=== PATIENT | male | born 1945 | race Caucasian/White ===

== ENCOUNTER 2016-05-24 14:42 | Emergency (ER) | payer MEDICAID ==
[~2016-05-24] VITALS: Ht 170.2 cm; Wt 64.4 kg
[2016-05-24] MEDS ORDERED: MINERAL OIL 133 ML (PYXIS) 1 EA ENEMA RC ONE ×2 (14:57→15:00)
[2016-05-24] MEDS ORDERED: ASPI-605 PO (15:08)
[2016-05-24] MEDS ORDERED: CARB-93 PO (15:08)
[2016-05-24] MEDS ORDERED: SIMV10TA6 PO (15:08)
[2016-05-24] MEDS ORDERED: FINA5TAB11 PO (15:08)
[2016-05-24 18:16] VITALS: BP 142/77
== END 2016-05-24 18:17 | disposition home or self-care (01) ==
LOC: ER 14:46
DX: K59.00 Constipation, unspecified (principal); K40.90 Unilateral inguinal hernia, without obstruction or gangrene, not specified as recurrent; E78.5 Hyperlipidemia, unspecified; I10 Essential (primary) hypertension; Z79.82 Long term (current) use of aspirin
CPT/HCPCS: 99283; A4606; Z7610

== ENCOUNTER 2019-04-22 20:43 | Emergency (ER) | payer MEDICAID, OTHER ==
[~2019-04-22] VITALS: Ht 160 cm; Wt 79.4 kg
[~2019-04-22 20:43] MED LIST: ASPI-605 PO; CARB-93 PO; FINA5TAB11 PO; SIMV10TA98 PO
[2019-04-22] MEDS ORDERED: ONDANSETRON HCL/PF 4 MG/2 ML VIAL IVP ONE (21:30)
[2019-04-22] MEDS ORDERED: IV NS 0.9% 1,000 ML BAG IV ONE (21:30)
[2019-04-22 21:46] LABS: BASOPHILS # (AUTO) 0.1 /CMM (0.0-0.2); BASOPHILS % (AUTO) 1.1 % (0.0-2.0); HEMATOCRIT 40 % (39-51); HEMOGLOBIN 13.6 g/dL (13.5-17.5); LYMPHOCYTES # (AUTO) 2.1 /CMM (0.8-4.8); LYMPHOCYTES % (AUTO) 32.4 % (20.0-44.0); MEAN CORPUSCULAR HGB CONC 34 g/dl (31.0-36.0); MEAN CORPUSCULAR VOLUME 95 fL (80-96); MONOCYTES # (AUTO) 0.5 /CMM (0.1-1.30); MONOCYTES % (AUTO) 7.7 % (2.0-12.0); NEUTROPHILS # (AUTO) 3.7 /CMM (1.8-8.9); NEUTROPHILS % (AUTO) 55.8 % (43.0-81.0); PLATELET COUNT (AUTO) 233 /CMM (150-450); RED BLOOD CELL COUNT(AUTO) 4.25 MIL/uL (4.5-6.0); WHITE BLOOD COUNT (AUTO) 6.6 K/uL (4.3-11.0)
[2019-04-22 22:09] LABS: CALCIUM, SERUM 9.2 mg/dL (8.5-10.1); CARBON DIOXIDE 29 mmol/L (21-32); CHLORIDE 107 mmol/L (98-107); GLUCOSE 121 mg/dL (74-106); POTASSIUM 3.5 mmol/L (3.5-5.1); SODIUM SERUM 143 mmol/L (136-145); UREA NITROGEN, BLOOD 18 mg/dL (7-18)
[2019-04-22] MEDS ORDERED: ONDANSETRON HCL/PF 4 MG/2 ML VIAL ONE (22:10)
[2019-04-22 22:13] LABS: ALANINE AMINOTRANSFERASE 15 U/L (12-78); ALBUMIN 3.8 g/dL (3.4-5.0); ALKALINE PHOSPHATASE 84 U/L (46-116); ASPARTATE AMINOTRANSFERASE 23 U/L (15-37); BILIRUBIN,DIRECT 0.1 mg/dL (0.0-0.2); BILIRUBIN,TOTAL 0.5 mg/dL (0.2-1.0); TOTAL PROTEIN, SERUM 7.3 g/dL (6.4-8.2)
--- NOTE | 2019-04-22 22:19 | NUR ---
BIB vacuum drier tender FROM [facility] FOR C/O INCRESED CONFUSION "WANDERING AT THE FACILITY". PT AAOX2, VSS. DENIES CP, SOB, DIZZINESS, WEAKNESS @ THIS TIME. PT C/O NAUSEA & MEDICATED ORDERED BY SHANNAN. PT JESUS ALBERTO WELL. WILL CONT TO MONITOR.
--- NOTE | 2019-04-22 23:40 | NUR ---
[facility] ETA [phone]
--- NOTE | 2019-04-23 02:27 | NUR ---
REPORT GIVEN TO garment liner FROM [facility]
--- NOTE | 2019-04-23 02:29 | NUR ---
ATTEMPTED TO CALL ALEXEY PAYTON MULTIPLE TIMES TO GIVE REPORT . SOUNDS LIKE THEIR PHONE IS BROKEN AND CAN'T HEAR US.
--- NOTE | 2019-04-23 02:31 | NUR ---
[facility] AT BEDSIDE FOR TRANSPORT HOME.
--- NOTE | 2019-04-23 02:53 | NUR ---
PT WAS PICKED UP BY [facility] IN STABLE CONDITION AND TRANSFERRED BACK TO THE [facility]. ALL BELONGINGS PICKED UP BY THE game advisor.
[2019-04-23 02:58] VITALS: BP 152/90
== END 2019-04-23 02:59 ==
LOC: ER 20:47
DX: R41.82 Altered mental status, unspecified (principal); I10 Essential (primary) hypertension; N40.0 Benign prostatic hyperplasia without lower urinary tract symptoms; E78.5 Hyperlipidemia, unspecified; G20 Parkinson's disease; Z98.890 Other specified postprocedural states; Z79.82 Long term (current) use of aspirin; Z79.899 Other long term (current) drug therapy
CPT/HCPCS: 36415; 70450; 71045; 80048; 80076; 83605; 84484; 85025; 85730; 87040; 93005; 96374; 99284; J2405; J7030

== ENCOUNTER 2019-10-28 20:53 | Inpatient (IN) | payer OTHER ==
[~2019-10-28] VITALS: Ht 160 cm; Wt 64.4 kg
--- NOTE | 2019-10-28 21:00 | NUR ---
bib ambulife 722 from [facility] for fever of 99.9 and poor appetite.; pt to bed 7, awake, verbally responsive, placed on monitor, noted with elevated temp, -sob noted, pending er doctor sandip
--- NOTE | 2019-10-28 21:09 | NUR ---
[facility] AT BEDSIDE FOR EKG
[2019-10-28] MEDS ORDERED: CYCL5TAB PO (21:11)
[2019-10-28] MEDS ORDERED: AMLO5TAB9 PO (21:11)
[2019-10-28] MEDS ORDERED: TRAZ-257 PO (21:11)
[2019-10-28] MEDS ORDERED: DICL100G16 TP (21:11)
[2019-10-28] MEDS ORDERED: ACET500C4 PO (21:11)
[2019-10-28] MEDS ORDERED: ATOR10TA PO (21:11)
[2019-10-28] MEDS ORDERED: ERGO500014 PO (21:11)
[2019-10-28] MEDS ORDERED: POLY17PO4 PO (21:11)
--- NOTE | 2019-10-28 21:25 | NUR ---
LABS DRAWN AND SENT TO LAB
--- NOTE | 2019-10-28 21:25 | NUR ---
URINE COLLECTED AND SENT TO LAB
--- NOTE | 2019-10-28 21:28 | NUR ---
COVID SWAB SENT TO LAB
[2019-10-28 21:42] LABS: BASOPHILS % (AUTO) 0.6 % (0.0-2.0); EOSINOPHILS % (AUTO) 0.2 % (0.0-6.0); HEMATOCRIT 39 % (39-51); HEMOGLOBIN 13.1 g/dL (13.5-17.5); LYMPHOCYTES # (AUTO) 0.7 /CMM (0.8-4.8); LYMPHOCYTES % (AUTO) 14.4 % (20.0-44.0); MEAN CORPUSCULAR HGB CONC 34 g/dl (31.0-36.0); MEAN CORPUSCULAR VOLUME 93 fL (80-96); MONOCYTES # (AUTO) 0.8 /CMM (0.1-1.30); MONOCYTES % (AUTO) 15.9 % (2.0-12.0); NEUTROPHILS # (AUTO) 3.3 /CMM (1.8-8.9); NEUTROPHILS % (AUTO) 68.9 % (43.0-81.0); PLATELET COUNT (AUTO) 241 /CMM (150-450); RED BLOOD CELL COUNT(AUTO) 4.22 MIL/uL (4.5-6.0); WHITE BLOOD COUNT (AUTO) 4.8 K/uL (4.3-11.0)
[2019-10-28 21:51] LABS: APPEARANCE,URINE CLEAR (CLEAR); BILIRUBIN,URINE SMALL (NEGATIVE); BLOOD, URINE NEGATIVE Ery/uL (NEGATIVE); COLOR,URINE YELLOW (YELLOW); KETONES,URINE NEGATIVE (NEGATIVE); LEUKOCYTE ESTERASE ,URINE NEGATIVE (NEGATIVE); NITRITE, URINE NEGATIVE (NEGATIVE); PROTEIN,URINE TRACE mg/dl (NEGATIVE); UGLUCOSE NEGATIVE (NEGATIVE)
[2019-10-28 21:59] LABS: ALANINE AMINOTRANSFERASE 52 U/L (12-78); ALBUMIN 3.5 g/dL (3.4-5.0); ALKALINE PHOSPHATASE 74 U/L (46-116); ASPARTATE AMINOTRANSFERASE 168 U/L (15-37); BILIRUBIN,DIRECT 0.1 mg/dL (0.0-0.2); BILIRUBIN,TOTAL 0.4 mg/dL (0.2-1.0); CALCIUM, SERUM 9.1 mg/dL (8.5-10.1); CARBON DIOXIDE 30 mmol/L (21-32); CHLORIDE 103 mmol/L (98-107); CREATININE 0.7 mg/dL (0.6-1.3); GLUCOSE 89 mg/dL (74-106); SODIUM SERUM 141 mmol/L (136-145); TOTAL PROTEIN, SERUM 6.9 g/dL (6.4-8.2); UREA NITROGEN, BLOOD 17 mg/dL (7-18)
[2019-10-28] MEDS ORDERED: IV NS 0.9% 1,000 ML BAG IV ONE (22:00)
[2019-10-28 22:02] LABS: BACTERIA,URINE None seen /HPF (None Seen); RBC,URINE 0-2 /HPF (0-2); SQUAMOUS EPITHELIAL CELL,UR 0-2 /HPF (None Seen); WBC,URINE 0-2 /HPF (0-3)
[2019-10-28 22:03] LABS: POTASSIUM 2.7 mmol/L (3.5-5.1)
[2019-10-28] MEDS ORDERED: POTASSIUM CL. PREMIX PERIPHER. 100 ML ONE (23:00)
[2019-10-28] MEDS: POTASSIUM CL. PREMIX PERIPHER. 50 ML IV SCH (23:00)
--- NOTE | 2019-10-29 00:02 | NUR ---
DR. WATKINS SPEAKING WITH DR. GREEN
--- NOTE | 2019-10-29 00:03 | NUR ---
BED ASSIGNMENT 105
[2019-10-29] MEDS: POTASSIUM CL. PREMIX PERIPHER. 50 ML IV SCH ×8 (00:06→07:45)
--- NOTE | 2019-10-29 00:18 | NUR ---
report given to eliezer rn for mi; pt will be transported to 1st floor
--- NOTE | 2019-10-29 00:53 | NUR ---
dr. purcell with orders; cont potassium 10meq ivpb q1hr x8 bags total, endorsed [id number] to inpatient nurse
--- NOTE | 2019-10-29 00:54 | NUR ---
pt tranpsorted to 1st floor
[2019-10-29 01:22] VITALS: BP 165/96
[2019-10-29 04:00] VITALS: BP 176/98
[2019-10-29 04:28] LABS: LYMPHOCYTES % (MANUAL) 15 % (16-48); MONOCYTES % (MANUAL) 17 % (0-11.0); NEUTROPHILS % (MANUAL) 68 (42-76)
--- NOTE | 2019-10-29 05:57 | NUR ---
RN notes Admitted a 74 year olf male from ER via stretcher in stable condition. No distress noted with O2sat at 98% on room air. No complaint of pain or discomfort. Alert with confusion. Positive for covide 19. Admitted for hypokalemia. 2 bags of Potassium administered at ER and conitnued to administer in tele unit for 6 more bags, tolerating well. Skin assessment done. Kept clean and dry. Will endorse to next shift for continuity of care.
--- NOTE | 2019-10-29 07:26 | NUR ---
AUTOMATIC CAR WASH ATTENDANT OPENING NOTES RECEIVED PATIENT IN BED, ASLEEP. PATIENT ON ROOM AIR; BREATHING EVEN AND UNLABORED; NO SOB PRESENT AT THIS MOMENT. NO S/S OF PAIN SUCH FACIAL GRIMACING, MOANING OR GUARDING AT THIS TIME. LAC # 18 PRESENT AND INTACT INFUSING IV FLUIDS AND POTASSIUM AT THIS TIME. SAFETY PRECAUTIONS IN PLACE; BED IN LOW POSITION AND LOCKED, RAILS UP X2, CALL LIGHT WITHIN REACH. WILL CONTINUE TO MONITOR PATIENT.
[2019-10-29] MEDS ORDERED: SENN-261 PO (07:42)
[2019-10-29 08:08] VITALS: BP 163/78
[2019-10-29] MEDS: POTASSIUM CHLORIDE 20 MEQ TAB.PRT.SR PO SCH (08:47)
[2019-10-29] MEDS: ENOXAPARIN SODIUM 40 MG/0.4 ML DISP.SYRIN SQ SCH (08:49)
[2019-10-29 12:43] VITALS: BP 145/82
[2019-10-29] MEDS: AMLODIPINE BESYLATE 5 MG TABLET PO SCH ×2 (15:54→16:22)
[2019-10-29] MEDS: CYCLOBENZAPRINE 10 MG TABLET PO SCH ×2 (15:55→16:22)
[2019-10-29] MEDS: FINASTERIDE (5 MG) 5 MG TABLET PO SCH ×2 (16:00→16:22)
[2019-10-29] MEDS ORDERED: ACETAMINOPHEN 650 MG/20.3 ML UDC PO PRN (16:00)
[2019-10-29 16:13] VITALS: BP 133/86
[2019-10-29] MEDS: CARBIDOPA/LEVODOPA 25/100 MG 1 UDTAB PO SCH ×2 (16:22→16:38)
[2019-10-29] MEDS ORDERED: METHYL SALICYLATE/MENTHOL 28GM 28 GM TUBE TP PRN (16:30)
--- NOTE | 2019-10-29 16:38 | NUR ---
OIL EXPELLER NOTES PATIENT REFUSES MEDICATIONS FOR NO APPARENT REASON. PATIENT SAYING HE JUST DOES NOT WANT TO TAKE THEM AND TURNS HIS HEAD AWAY. PATIENT VITAL SIGNS ARE WITHIN NORMAL LIMITS. PATIENT LAYING IN BED A/O X2 BUT LOOKS CONFUSED; OXYGENATING AT 98% ROOM AIR; NOT COMPLAINING OF PAIN AND SAYING HE FEELS FINE.
[2019-10-29] MEDS ORDERED: DICLOFENAC TOPICAL 100 GM GEL..GM. TP SCH (17:00)
[2019-10-29] MEDS: IV NS 0.9% 1,000 ML IV PRN (17:33)
--- NOTE | 2019-10-29 18:39 | NUR ---
OFFLINE CUTTER CLOSING NOTES PATIENT IN BED, ASLEEP. PATIENT ON ROOM AIR; BREATHING EVEN AND UNLABORED; NO SOB PRESENT AT THIS MOMENT. NO S/S OF PAIN SUCH FACIAL GRIMACING, MOANING OR GUARDING AT THIS TIME. LAC # 18 PRESENT AND INTACT INFUSING NS AT 75MLS/HR. ALL NEEDS ATTENDED TO THROUGHOUT THE DAY. SAFETY PRECAUTIONS IN PLACE; BED IN LOW POSITION AND LOCKED, RAILS UP X2, CALL LIGHT WITHIN REACH. WILL ENDORSE TO PRINTER MAINTAINER NURSE.
--- NOTE | 2019-10-29 19:52 | NUR ---
PAPERBOARD BOX MAKER OPENING NOTES PATIENT RECEIVED RESTING IN BED COMFORTABLY; CONFUSED; BREATHING EVEN AND UNLABORED; PATIENT TOLERATING ROOM AIR WELL, SATTING AT 100%; TELE MONITOR READS NSR 69BPM; LAC # 18 INTACT AND PATENT, FLUSHING WELL; INFUSING NS @75ML/HR; PATIENT TOLERATING IVF WELL; ISOLATION PRECAUTIONS MAINTAINED; SAFETY PRECAUTIONS MAINTAINED; BED LOCKED IN LOW POSITION; SIDE RAILSX2; CALL LIGHT WITHIN REACH, WILL CONT TO MONITOR
[2019-10-29 20:00] VITALS: BP 140/89
[2019-10-29] MEDS: TRAZODONE 50 MG TABLET PO SCH ×2 (21:11→21:21)
[2019-10-29] MEDS: ATORVASTATIN 10 MG TABLET PO SCH ×2 (21:12→21:21)
[2019-10-29] MEDS ORDERED: SENNOSIDES 8.6 MG TABLET PO SCH (22:00)
[2019-10-30] VITALS (7 sets, daily range): BP systolic 123–158; BP diastolic 78–96
--- NOTE | 2019-10-30 06:27 | NUR ---
MAINFRAME DEVELOPER CLOSING NOTES PATIENT RESTING IN BED COMFORTABLY; PATIENT CONFUSED; A/OX1; BREATHING EVEN AND UNLABORED; PATIENT TOLERATING ROOM AIR WELL; NO SOB NOTED; O2SAT 99% ON ROOM AIR; TELE MONITOR READS NSR 76BPM; L AC # 18 INTACT AND PATENT, FLUSHING WELL; NO S/S OF REDNESS OR INFILTRATION NOTED; ISOLATION PRECAUTIONS MAINTAINED; ALL NEEDS RENDERED; SAFETY PRECAUTIONS IMPLEMENTED; BED LOCKED IN LOW POSITION; SIDE RAILSX2; CALL LIGHT WITHIN REACH; WILL ENDORSE DEEPTI TO ONCOMING SHIFT
[2019-10-30 07:16] LABS: POTASSIUM 3.3 mmol/L (3.5-5.1)
--- NOTE | 2019-10-30 08:30 | NUR ---
RN OPENING NOTE: RECEIVED PATIENT IN BED THIS MORNING. PATIENT IS ALERT AND ORIENTED X1, EPISODES OF CONFUSION. PATIENT IS SR IN THE 70S WITH PVC ON TELE MONITOR. PATIENT IS SATING WELL ON ROOM AIR, NO SIGNS OF ACUTE RESPIRATORY DISTRESS NOTED. NO SIGNS OF ACUTE DISTRESS NOTED. #18 LAC C/D/I, FLUSHING WELL, NO SIGNS OF COMPLICATIONS NOTED. SAFETY MEASURES IMPLEMENTED, BED IN LOWEST POSITION, LOCKED, SIDE RAILS UP, CALL LIGHT WITHIN REACH. WILL CONTINUE TO MONITOR PATIENT FOR CHANGES.
[2019-10-30] MEDS: FINASTERIDE (5 MG) 5 MG TABLET PO SCH (09:55)
[2019-10-30] MEDS: CYCLOBENZAPRINE 10 MG TABLET PO SCH (09:56)
[2019-10-30] MEDS: CARBIDOPA/LEVODOPA 25/100 MG 1 UDTAB PO SCH ×3 (09:56→16:41)
[2019-10-30] MEDS: POTASSIUM CHLORIDE 20 MEQ TAB.PRT.SR PO SCH (09:56)
[2019-10-30] MEDS: AMLODIPINE BESYLATE 5 MG TABLET PO SCH (09:57)
[2019-10-30] MEDS: POLYETHYLENE GLYCOL 3350 17 GM POWD.PACK PO SCH (09:58)
[2019-10-30] MEDS: ENOXAPARIN SODIUM 40 MG/0.4 ML DISP.SYRIN SQ SCH (09:59)
--- NOTE | 2019-10-30 11:50 | NUR ---
GISELA PALACIOS PULLED ANOTHER LOVENOX D/T THE LOVENOX I HAD PULLED WAS DEFECTED AND THE MED WAS WASTED BEFORE ADMINISTERING TO PATIENT.
[2019-10-30] MEDS: IV NS 0.9% 1,000 ML IV PRN (15:55)
--- NOTE | 2019-10-30 18:57 | NUR ---
RN CLOSING NOTE: PATIENT REMAINS IN BED, NO SIGNS OF RESPIRATORY DISTRESS NOTED, NO SIGNS OF ACUTE DISTRESS NOTED. SR 66 ON TELE MONITOR. SAFETY MEASURES IMPLEMENTED, BED IN LOWEST POSITION LOCKED, BED ALARM ON, SIDE RAILS UP, CALL LIGHT WITHIN REACH. WILL ENDORSE TO BERHANE HIGGINS FOR CONTINUITY OF CARE.
--- NOTE | 2019-10-30 19:30 | NUR ---
RN OPENING NOTES Received client in bed. Client is resting, denies pain no s/s of pain. No s/s of distress. VS wnl. client is on RA, sat 100%. Client is on external telemonitor, NSR, HR 70's. the client has LAC, running NS 75cc/hr. All needs rendered a this time, will continue to monitor.
[2019-10-30] MEDS: ATORVASTATIN 10 MG TABLET PO SCH (21:32)
[2019-10-30] MEDS: TRAZODONE 50 MG TABLET PO SCH (21:32)
[2019-10-31] VITALS: BP 130/79
[2019-10-31] MEDS: IV NS 0.9% 1,000 ML IV PRN (00:11)
[2019-10-31 04:00] VITALS: BP 135/79
--- NOTE | 2019-10-31 06:37 | NUR ---
RN CLOSING NOTES Client remains stable with no s/s of distress at this time. VS wnl, sat 96 - 100 % on RA. No s/s of pain. Client is A/O x3. The client is on external telemonitor, SR, HR 70'S. No change of condition during the shift. All needs rendered at this time. All safety mechanisms in place, will endorse the incoming nurse for continuity of care.
--- NOTE | 2019-10-31 07:30 | NUR ---
SAFETY ASSOCIATE NOTES. PATIENT LAYING IN BED, SLEEPING EASILY AROUSED WHEN APPROACHED. PATIENT HAS NO SIGNS OF RESPIRATORY DISTRESS, BREATHING EVENLY, NO SIGNS OF PAIN. BED IS IN LOWEST POSITION. BED ALARM IS ON, SIDE RAILS ARE UP, CALL LIGHT IS WITHIN REACH. WILL CONTINUE TO MONITOR.
[2019-10-31] MEDS: FINASTERIDE (5 MG) 5 MG TABLET PO SCH (08:53)
[2019-10-31] MEDS: AMLODIPINE BESYLATE 5 MG TABLET PO SCH (08:53)
[2019-10-31] MEDS: CARBIDOPA/LEVODOPA 25/100 MG 1 UDTAB PO SCH ×2 (08:53→13:20)
[2019-10-31] MEDS: POTASSIUM CHLORIDE 20 MEQ TAB.PRT.SR PO SCH (08:53)
[2019-10-31] MEDS: POLYETHYLENE GLYCOL 3350 17 GM POWD.PACK PO SCH (08:54)
[2019-10-31] MEDS: CYCLOBENZAPRINE 10 MG TABLET PO SCH (08:54)
[2019-10-31] MEDS: ENOXAPARIN SODIUM 40 MG/0.4 ML DISP.SYRIN SQ SCH (08:55)
[2019-10-31 09:38] VITALS: BP 121/68
--- NOTE | 2019-10-31 12:02 | NUR ---
PROGRAM PROPOSALS COORDINATOR NOTES: PATIENT SLEEPING IN BED, NO SIGNS OF ANY PAIN OR SHORTNESS OF BREATH. BED OF THE HEAD ELEVATED, CALL LIGHT WITHIN REACH. WILL CONTINUE TO MONITOR.
--- NOTE | 2019-10-31 12:20 | NUR ---
RN NOTES RECEIVED REPORT FROM JOB HIGGINS. PATIENT IN BED RESTING. DENIES PAIN , NO SOB, NO S/S OF DISTRESS. PATIENT IS RA SATURATING AT 100%. TELE READING NSR HR AT 70'S. A LAC NOTED , RUNNING NS 75CC/HR. WILL CONTINUE TO MONITOR.
--- NOTE | 2019-10-31 14:13 | NUR ---
RN NOTES REPORT GIVEN TO LLUVIA JEFFERS REGARDING DISCHARGE, RESERVATIONS CLERK TIME AT 1500.
--- NOTE | 2019-10-31 15:30 | NUR ---
DISCHARGE PATIENT, GAVE REPORT TO PEARL EMT,
[2019-11-04] MEDS ORDERED: ERGOCALCIFEROL (VITAMIN D 2) 50,000 UNIT CAPSULE PO SCH (06:30)
== END 2019-10-31 15:30 | DRG 137 ==
LOC: ER 20:58 → TELE1 10-29 00:04
PROVIDERS: ADMIT Internal Medicine; ATTEND Internal Medicine
DX: U07.1 COVID-19 (principal); I10 Essential (primary) hypertension; F03.90 Unspecified dementia, unspecified severity, without behavioral disturbance, psychotic disturbance, mood disturbance, and anxiety; N40.0 Benign prostatic hyperplasia without lower urinary tract symptoms; E78.5 Hyperlipidemia, unspecified; Z79.82 Long term (current) use of aspirin; E87.6 Hypokalemia; G20 Parkinson's disease; F02.80 Dementia in other diseases classified elsewhere, unspecified severity, without behavioral disturbance, psychotic disturbance, mood disturbance, and anxiety; K59.00 Constipation, unspecified; M62.81 Muscle weakness (generalized); Z98.890 Other specified postprocedural states; G93.40 Encephalopathy, unspecified; R79.89 Other specified abnormal findings of blood chemistry; F10.21 Alcohol dependence, in remission
CPT/HCPCS: 36415; 71045-TC; 80048-TC; 80076-TC; 81000-TC; 83605-TC; 83735-TC; 83880; 84132-TC; 84484-TC; 85025-TC; 85730-TC; 87040-TC; 87081-TC; 87086-TC; 87186-TC; G0378; J1650; J3480; J3490; J7030; J7050